=== PATIENT | female | born 1960 | race Asian ===

== ENCOUNTER 2023-08-10 08:14 | Day surgery (SDC) | payer OTHER ==
[~2023-08-10] VITALS: Ht 167.6 cm; Wt 65.8 kg
[2023-08-10] MEDS ORDERED: diphenhydrAMINE 50 MG/ML VIAL ONE (09:10)
[2023-08-10] MEDS ORDERED: fentaNYL citrate 0.05 MG/ML VIAL ONE (09:11)
[2023-08-10] MEDS ORDERED: MIDAZOLAM 5 MG/5 ML VIAL ONE (09:11)
[2023-08-10] MEDS ORDERED: LIDOCAINE 2% 100 MG/5 ML UJET TP ONE (09:24)
[2023-08-10] MEDS ORDERED: MIDAZOLAM 2 MG/2 ML VIAL IVP ONE (14:30)
[2023-08-10] MEDS ORDERED: FENTANYL C 0.075 MG/HR PATCH TD SCH (14:30)
[2023-08-11] MEDS ORDERED: fentaNYL citrate 0.05 MG/ML VIAL IVP ONE (08:40)
== END 2023-08-10 11:37 | disposition home or self-care (01) ==
LOC: MDS 08:14 → MMU 08:20 → MDS 11:37
PROVIDERS: ATTEND Internal Medicine Gastroenterology
DX: Z12.11 Encounter for screening for malignant neoplasm of colon (principal); K63.5 Polyp of colon; Z86.010 Personal history of colon polyps; R10.13 Epigastric pain; I10 Essential (primary) hypertension; K21.9 Gastro-esophageal reflux disease without esophagitis; Z85.3 Personal history of malignant neoplasm of breast; Z98.890 Other specified postprocedural states
CPT/HCPCS: 43239; 45385; J2250; J3010; J1200